=== PATIENT | female | born 1955 | race Caucasian/White ===

== ENCOUNTER → 2016-07-13 | Outpatient (CLI) | payer BC ==
[~2016-07-13] MED LIST: CLINDAMYCIN 1% TOP; LOSA50TA52 PO; OMEP40CA52 PO; PRAV10TA42 PO
== END ==
LOC: WC.BC 15:25
DX: Z12.31 Encounter for screening mammogram for malignant neoplasm of breast (principal); N64.59 Other signs and symptoms in breast; Z80.3 Family history of malignant neoplasm of breast
CPT/HCPCS: 77063; G0202